=== PATIENT | female | born 1995 | race African-American/Black ===

== ENCOUNTER 2018-02-19 21:34 | Emergency (ER) | payer MEDICAID ==
[~2018-02-19] VITALS: Ht 165.1 cm; Wt 57.9 kg
[2018-02-20 04:19] VITALS: BP 126/75
== END 2018-02-20 04:22 | disposition home or self-care (01) ==
LOC: ER 02-20 02:16
DX: N64.4 Mastodynia (principal)
CPT/HCPCS: 99283; Z7610